=== PATIENT | female | born 1990 | race American Indian/Alaskan Native ===

== ENCOUNTER 2024-06-06 04:11 | Emergency (ER) | payer MEDICAID ==
[~2024-06-06] VITALS: Ht 157.5 cm; Wt 65.5 kg
[2024-06-06 04:20] VITALS: O2SAT 98
[2024-06-06 04:34] VITALS: BP 119/61; PULSE 98; RESP 16; TEMP 36.5; O2SAT 99
[2024-06-06] MEDS ORDERED: IPRATROPIUM/ALBUTEROL 0.5-3(2.5)MG/3ML NEB HHN ONE (05:45)
[2024-06-06 12:09] LABS: INFLUENZA TYPE A Presumptive Negative (Pres. Neg.)
[2024-06-06 12:10] LABS: INFLUENZA TYPE B Presumptive Negative (Pres. Neg.)
[2024-06-06 12:11] LABS: RESPIRATORY SYNCYTIAL VIRUS Not Detected (Not Detectd)
== END 2024-06-06 09:04 | disposition left against medical advice (07) ==
LOC: ER 04:11
DX: R06.02 Shortness of breath (principal); I10 Essential (primary) hypertension; J45.909 Unspecified asthma, uncomplicated; Z88.0 Allergy status to penicillin; Z20.822 Contact with and (suspected) exposure to COVID-19
CPT/HCPCS: 71045; 87420; 87426; 87804; 99284